=== PATIENT | male | born 1975 | race Caucasian/White ===

== ENCOUNTER 2019-02-24 03:36 | Emergency (ER) | payer BC ==
--- NOTE | 2019-02-24 03:46 | EDM.PDOC ---
ED HPI GENERAL MEDICAL PROBLEM - General Chief Complaint: Eye Problems Stated Complaint: RIGHT INJURY Time Seen by Provider: 02/24/19 03:42 - History of Present Illness INITIAL COMMENTS - FREE TEXT/NARRATIVE: 43-year-old male presents emergency room with a right eye injury This occurred this afternoon patient was moving some wires and a wire tie swung back and hit him in the right eye. He's had intermittent bouts of discomfort secondary to this and it is not letting him sleep. Patient denies any significant vision loss. Patient is up-to-date on his tetanus. The wire tie was not fragmented and left no foreign bodies. Right Eye Pain Score (Numeric/FACES): 7 - Related Data Allergies Allergy/AdvReac Type Severity Reaction Status Date / Time No Known Allergies Allergy Verified 02/24/19 03:48 Home Meds: Home Meds Ezetimibe/Simvastatin [Vytorin 10-10 MG] 1 tab PO DAILY 11/25/14 [History] Levothyroxine [Synthroid] 75 mcg PO ACBRK 11/25/14 [History] Past Medical History - Past Health History Medical/Surgical History: Denies Medical/Surgical History ED ROS GENERAL - Review of Systems Review Of Systems: See Below Constitutional: Reports: No Symptoms Respiratory: Reports: No Symptoms Cardiovascular: Reports: No Symptoms GI/Abdominal: Reports: No Symptoms ED EXAM GENERAL W FULL EYE - Physical Exam Exam: See Below Exam Limited By: No Limitations General Appearance: Alert, No Apparent Distress Eye Exam: Right Eye: Conjunctival Injection (Chronic discharge coloration from a injury as a child), Corneal Abrasion, Bilateral Eye: PERRL Visual Acuity (R) 20/: 25 Visual Acuity (L) 20/: 40 With Correction: No Eyelids: Bilateral: Normal Appearance, Edema Conjunctiva & Sclera: Bilateral: Normal Appearance Cornea Exam: Right: Examined with Flourescein (Large deficit across the lower portion of the cornea) Extraocular Movements: Bilateral: Intact Pupils: Normal Accommodation Nose: Normal Inspection, Normal Mucosa, No Blood Throat/Mouth: Normal Inspection, Normal Lips, Normal Teeth, Normal Gums, Normal Oropharynx, Normal Voice, No Airway Compromise Head: Atraumatic, Normocephalic Neck: Normal Inspection, Supple, Non-Tender, Full Range of Motion. No: Lymphadenopathy (L), Lymphadenopathy (R) Respiratory/Chest: No Respiratory Distress, Lungs Clear, Normal Breath Sounds Cardiovascular: Regular Rate, Rhythm, No Edema, No Murmur Course - Vital Signs Last Recorded V/S: Last Vital Signs Temp 36.2 C 02/24/19 03:45 Pulse 56 L 02/24/19 03:45 Resp 18 02/24/19 03:45 BP 122/80 02/24/19 03:45 Pulse Ox 96 02/24/19 03:45 - Orders/Labs/Meds Meds: Medications Discontinued Medications Generic Name Dose Route Start Last Admin Trade Name Karlos PRN Reason Stop Dose Admin Erythromycin 1 gm 02/24/19 04:06 Erythromycin 0.5% Ophth Oint EYEBOTH 02/24/19 04:07 ONETIME ONE Fluorescein Sodium 0.6 mg 02/24/19 03:49 02/24/19 04:04 Ful-Lilliana EYERT 02/24/19 03:50 0.6 mg ONETIME ONE Administration Proparacaine HCl 0.0001 ml 02/24/19 03:49 02/24/19 04:03 Proparacaine 0.5% Ophth Soln EYERT 02/24/19 03:50 1 drop ONETIME ONE Administration - Re-Assessments/Exams Free Text/Narrative Re-Assessment/Exam: 02/24/19 04:16 Patient given [place] [address] out of the machine in the waiting room one or 2 every 6 hours Departure - Departure Time of Disposition: 04:16 Disposition: Home, Self-Care 01 Clinical Impression: Corneal abrasion, right - Discharge Information Referrals: PCP,None [Primary Care Provider] - Forms: ED Department Discharge Additional Instructions: Treatment emergency room with any questions problems worsening symptoms. Follow-up with your eye doctor this afternoon. You been given some erythromycin ointment use about one third of an inch between the lower eyelid and the eye itself and swirl around this axis and eye lubricant. Use the pain medication one or 2 every 4-6 hours as needed for pain allow 12 hours after using this medication before driving or returning to work
[2019-02-24 03:47] VITALS: BP 122/80
[2019-02-24] MEDS ORDERED: Fluorescein 0.6 MG Ophth Strip EYERT ONE (03:49)
[2019-02-24] MEDS ORDERED: Proparacaine 0.5% Ophth Soln 15 ML Bottle EYERT ONE (03:49)
[2019-02-24] MEDS ORDERED: Erythromycin Base 0.5% Ophth Oint 1 GM Tube EYEBOTH ONE (04:06)
== END 2019-02-24 04:28 | disposition home or self-care (01) ==
LOC: JD.ED 03:36
DX: S05.01XA Injury of conjunctiva and corneal abrasion without foreign body, right eye, initial encounter (principal); Z79.899 Other long term (current) drug therapy; W22.8XXA Striking against or struck by other objects, initial encounter
CPT/HCPCS: 99283; A9270